=== PATIENT | male | born 1955 | race Caucasian/White ===

== ENCOUNTER 2016-12-28 11:47 | Inpatient (IN) ==
--- NOTE | 2016-12-27 21:23 | Discharge Summary ---
<Padma Avila - Last Filed: 12/28/16 10:00> Date of Encounter: 12/28/16 - Discharge Diagnosis (1) Arthritis of knee, right Priority: Primary Status: Acute (2) Status post total knee replacement, right Priority: Primary Status: Acute (3) History of DVT (deep vein thrombosis) Priority: Secondary Status: Chronic (4) History of paroxysmal atrial tachycardia Priority: Secondary Status: Chronic (5) Obesity Priority: Secondary Status: Chronic Qualifiers: Obesity type: due to excess calories Obesity classification: unspecified obesity classification Serious obesity comorbidity presence: without serious comorbidity Qualified Code(s): E66.09 - Other obesity due to excess calories; Z68.43 - Body mass index (BMI) 50-59.9 , adult; Z68.43 - Body mass index (BMI) 50-59.9 , adult; Z68.43 - Body mass index (BMI) 50-59.9 , adult; Z68.43 - Body mass index (BMI) 50-59.9 , adult (6) HTN (hypertension) Priority: Secondary Status: Chronic Qualifiers: Hypertension type: essential hypertension Qualified Code(s): I10 - Essential (primary) hypertension (7) Tobacco use Priority: Secondary Status: Chronic - Discharge Medications Home Medications: Furosemide [Lasix] 40 mg PO DAILY 08/12/15 [History] Meloxicam 15 mg PO DAILY 08/12/15 [History] Potassium Chloride [Klor-Con] 10 meq PO DAILY 08/12/15 [History] Aspirin Enteric Coated [Aspirin EC] 325 mg PO DAILY #21 tablet. 12/27/16 [Rx] OxyCODONE Immed Rel [Roxicodone 5 MG] 5 mg PO Q6HR PRN 7 Days #28 tablet [Rx] Acetaminophen [Tylenol Arthritis] 650 mg PO BID PRN 12/28/16 [History] Albuterol Sulfate [Proair Hfa] 2 puff IH Q4H PRN 12/28/16 [History] Aspirin 81 mg PO DAILY 12/28/16 [History] Diclofenac Sodium 1 appl TP QID PRN 12/28/16 [History] Enoxaparin [Lovenox] 30 mg SQ Q12HR #20 syr 12/28/16 [Rx] Mv-Mn/FA/Vit K/Lycop/Lut/Coq10 [Daily Multivitamin Capsule] 1 tab PO DAILY 12/28 [History] Allergies/Adverse Reactions: 3 Allergy/AdvReac Type Severity Reaction Status Date / Time No Known Allergies Allergy Verified 12/28/16 12:11 Primary care physician: Yvrose Lewis MD - Patient Status Disposition: Transfer Inpatient Rehab Fac Condition: Good - Discharge Instructions Follow Up With: Madi Medley MD [Partnered Physician] - 01/27/17 5:20 pm Padma Avila PAC [Physician Developer [employer]] - 01/07/17 9:45 am (Also, appointment 01/15/17 @ 9:15AM) Yvrose Lewis MD [Primary Care Provider] - 01/14/17 1:30 pm - Hospital Course Hospital course: Mr. Turk is a 61 year old male - Time Spent with Patient Total time spent providing and/or coordinating discharge services: <Madi Medley - Last Filed: 12/30/16 08:47> Date of Encounter: 12/30/16 Time of Encounter: 08:47 - Discharge Diagnosis (1) Arthritis of knee, right Priority: Primary Status: Chronic (2) Status post total knee replacement, right Priority: Primary Status: Acute (3) History of DVT (deep vein thrombosis) Priority: Secondary Status: Chronic (4) History of paroxysmal atrial tachycardia Priority: Secondary Status: Chronic (5) Obesity Priority: Secondary Status: Chronic Qualifiers: Obesity type: due to excess calories Obesity classification: adult class 3 (BMI >= 40) Serious obesity comorbidity presence: without serious comorbidity Body mass index: BMI 50.0-59.9 Qualified Code(s): E66.09 - Other obesity due to excess calories; Z68.43 - Body mass index (BMI) 50-59.9 , adult; Z68.43 - Body mass index (BMI) 50-59.9 , adult; Z68.43 - Body mass index (BMI) 50-59.9 , adult; Z68.43 - Body mass index (BMI) 50-59.9 , adult (6) HTN (hypertension) Priority: Secondary Status: Chronic Qualifiers: Hypertension type: essential hypertension Qualified Code(s): I10 - Essential (primary) hypertension (7) Tobacco use Priority: Secondary Status: Chronic Primary care physician: Yvrose Lewis MD - Patient Status Functional capacity at discharge: uses cane/walker Overall status at discharge: patient is progressing back to baseline - Hospital Course Hospital course: Mr. Turk is a 61 year old male Status post right total knee replacementThe patient had an uneventful postoperative course. They received antibiotics and physical therapy and were discharged in stable condition. There will follow-up in the office in 2 weeks. - Time Spent with Patient Total time spent providing and/or coordinating discharge services:
--- NOTE | 2016-12-28 12:14 | History & Physical Report ---
Date of Encounter: 12/28/16 Time of Encounter: 12:14 24 Hour HP Update - Instructions Instructions: If the History and Physical is less than 30 days old and was completed prior to A.M. admission and or procedure and has NOT been updated on calendar day of procedure please complete this update prior to performing procedure. - Update Patient reports changes in Medical Condition: No Changes in examination, assessment, or condition: No Changes in Medication: No Preop tests/diagnostics Reviewed: Yes Surgery Remains Indicated: Yes Consent for Planned Operative Procedure(s) Verified: Yes - Pre-Operative Checklist Preoperative Checklist Indicated: No Prophylactic Antibiotic Ordered: Yes Is VTE Prophylaxis Indicated?: Yes
[2016-12-28] MEDS ORDERED: Lidocaine -MPF 1% 2 ML VIAL ID ONE (12:17)
[2016-12-28] MEDS ORDERED: CeFAZolin Pre 3,000 MG/100 ML 3,000 MG/100 ML BAG IVPB ONE (12:17)
[2016-12-28] MEDS ORDERED: Ringers Solution, Lactated 1,000 ML IVC SCH ×2 (12:30→17:01)
[2016-12-28] MEDS ORDERED: Plasma-Lyte A (PH 7.4) 1,000 ML IVC SCH (12:45)
[2016-12-28] MEDS ORDERED: Bupivacaine/Clonidine Syringe 1 EACH SYRINGE ONE (13:28)
[2016-12-28] MEDS ORDERED: ROPIVACAINE HCL/PF 0.5% 30 ML VIAL ONE (13:28)
--- NOTE | 2016-12-28 13:30 | Anesthesia Evaluation PreOp ---
Date of Encounter: 12/28/16 Time of Encounter: 13:33 - Past History Planned Operation: Total right knee arthoplasty Cardiac History: HTN, Hyperlipidemia, Arrhythmia (A fib), Other (hx DVT) Pulmonary History: Former smoker CIRCUS TRAIN SUPERVISOR History: Denies Any Significant HX Other Medical History: Other (BMI 50) Anesthesia History: No Prior Anesthetic Complications Alcohol Use: none, rarely Drug use: none Medications and Allergies Furosemide [Lasix] 40 mg PO DAILY 08/12/15 [History] Meloxicam 15 mg PO DAILY 08/12/15 [History] Potassium Chloride [Klor-Con] 10 meq PO DAILY 08/12/15 [History] Aspirin Enteric Coated [Aspirin EC] 325 mg PO DAILY #21 tablet. 12/27/16 [Rx] OxyCODONE Immed Rel [Roxicodone 5 MG] 5 mg PO Q6HR PRN 7 Days #28 tablet [Rx] Acetaminophen [Tylenol Arthritis] 650 mg PO BID PRN 12/28/16 [History] Albuterol Sulfate [Proair Hfa] 2 puff IH Q4H PRN 12/28/16 [History] Aspirin 81 mg PO DAILY 12/28/16 [History] Diclofenac Sodium 1 appl TP QID PRN 12/28/16 [History] Enoxaparin [Lovenox] 30 mg SQ Q12HR #20 syr 12/28/16 [Rx] Mv-Mn/FA/Vit K/Lycop/Lut/Coq10 [Daily Multivitamin Capsule] 1 tab PO DAILY 12/28 [History] 3 Allergy/AdvReac Type Severity Reaction Status Date / Time No Known Allergies Allergy Verified 12/28/16 12:11 - Meds/Allergy Pre-op Review Medications Reviewed: Yes Allergies Reviewed: Yes Beta Blockers on Current Med List: No Anesthesia Results - Labs Laboratory Tests 12/24/16 12/24/16 12/24/16 10:40 10:40 10:40 WBC 10.9 Hgb 16.3 Hct 48.9 Plt Count 245 PT 11.5 INR 1.1 APTT 27.9 Sodium 141 Potassium 3.8 Chloride 103 Carbon Dioxide 26 BUN 18 Creatinine 0.95 Est GFR ( Amer) > 60 Est GFR (Non-Af Amer) > 60 BUN/Creatinine Ratio 19 - Imaging EKG: report reviewed, image reviewed (SINUS RHYTHM BORDERLINE LEFT AXIS DEVIATION) Additional studies: 6-2016 TTE: Indications: Lower extremity edema Impressions: Borderline dilated left ventricle. Normal LV systolic function, LVEF 55-60%. Mild concentric left ventricular hypertrophy. Indeterminate diastolic function. Normal right ventricular structure and function. Moderately dilated left atrium. Unable to estimate RVSP due to lack of TR jet. No significant valvular dysfunction. Anesthesia Exam Last Vital Signs Temp 98.0 F 12/28/16 12:31 Pulse 70 12/28/16 12:31 Resp 18 12/28/16 12:31 BP 114/60 12/28/16 12:31 Pulse Ox 93 12/28/16 12:31 Weight: 163 kg NPO (# of Hours): > 8 hrs - HEENT Pupil (Motor): Pupils equal, EOMI Mallampati: III Teeth: Normal Oral Opening: Greater than 3 - CIRCUS TRAIN SUPERVISOR LOC: Oriented CIRCUS TRAIN SUPERVISOR Motor: Normal RUE, Normal LUE, Normal RLE, Normal LLE, Normal Face - Cardiac Rhythm: Regular Murmur: None - Pulmonary Breath Sounds: bilateral Clear Respiratory Effort: Symmetrical Anesthesia Assess/Plan ASA Score: 3 Modified Ragini Scale for Level of Consciousness: Cooperative, oriented, and tranquil Anesthetic Plan: General, Regional Monitoring Plan: Standard Monitors Recovery Plan: PACU
[2016-12-28] MEDS ORDERED: *HR* FentaNYL (PF) 100 MCG/2 ML VIAL ONE (13:31)
[2016-12-28] MEDS ORDERED: *HR* Midazolam HCl 2 MG/2 ML VIAL ONE (13:31)
[2016-12-28] MEDS ORDERED: *HR* HYDROmorphone (PF) 1 MG/ML SYRINGE IVP PRN ×2 (13:41→17:01)
[2016-12-28] MEDS ORDERED: *HR* Promethazine 25 MG/ML VIAL IVP PRN (13:41)
[2016-12-28] MEDS ORDERED: Ketorolac 30 MG/ML VIAL ONE (13:44)
[2016-12-28] MEDS ORDERED: Lidocaine -MPF 4% 5 ML AMPUL ONE (13:44)
[2016-12-28] MEDS ORDERED: *HR* Succinylcholine 200 MG/10 ML VIAL IVP ONE (13:44)
[2016-12-28] MEDS ORDERED: *HR* Propofol 200 MG/20 ML VIAL IVP ONE (13:44)
[2016-12-28] MEDS ORDERED: Ondansetron 4 MG/2 ML VIAL ONE (13:44)
[2016-12-28] MEDS ORDERED: Dexamethasone 4 MG/ML VIAL ONE (13:44)
[2016-12-28] MEDS ORDERED: Lidocaine -MPF 2% 2 ML VIAL ONE (13:44)
[2016-12-28] MEDS ORDERED: Ethanol\\Acetic Acid\\Na Ace\\Ben 1,000 ML IRRIG.SOLN IR ONE (14:40)
--- NOTE | 2016-12-28 14:52 | Anesthesia Procedures ---
Date of Encounter: 12/28/16 Time of Encounter: 14:30 Procedures: Anesthesia - Nerve Block Procedure Date: 12/28/16 Time: 14:30 Allergies/Adv Reactions: nkda Pre-op Diagnosis: R knee pain Surgical Procedure: R total knee Checklist: Correct Patient Identifier, Correct procedure, History checked Correct side: Right Blood Thinner: No Monitor Applied: EKG, BP, Pulse Oximetry Supplemental Oxygen via Nasal Cannula (L/min): 2 Sedation: Versed (mg): 2 Sedation: Fentanyl (mcg): 100 Indication: Post Op Analgesia Pre-op Neuro Deficits: No Block Type: Femoral, Other (IPAC) Catheter placed: No Ultrasound used: Yes Anatomy identified: Yes Visual spread of Local: Yes Neuro Stimulation: Yes Nerve Stimulator Range: 0.2 - 0.4 mA Blood on Needle Aspiration: No Smooth Injection of Local: Yes Pain with Injection of Local: No Prep: Chlorhexadine Local: Ropivacaine Volume (cc): 30 Number of Attempts: 1 Complications: None/effective block
--- NOTE | 2016-12-28 15:45 | Orthopedic Operative Note ---
Date of procedure: 12/28/16 Pre-op diagnosis: Right knee arthritis Post-op diagnosis: same Procedure: Procedure: Right Total knee replacement Estimated blood loss: 400 cc Hardware: Metal and polyethylene replacement. Arthrex Femur: 9 Tibia: 9 PS insert: 12 Patella: 40 Exam Under anesthesia: Full flexion and extension no instability Procedural Notes: Grade 4 arthritic changes all 3 compartments. Operative procedure: The patient was brought to the operating room and placed on the operating room table. After general anesthesia was administered the operative knee was examined. Findings were noted in the exam under anesthesia. The operative extremity was prepped and draped in sterile surgical fashion. The patient received IV antibiotics prior to skin incision. A standard midline incision was made centered over the patella. The incision was made through the skin and subcutaneous tissue. A medial parapatellar tendon approach was performed. Care was taken to preserve tissue along the medial aspect of the patella. And to protect the patella tendon. The deep MCL was released off the medial tibia. The infra patella fat pad was excised. Knee was brought into flexion. Patient noted to have grade 4 arthritic changes all 3 compartments. The entry hole was made for the intramedullary femoral guide. The guide was seated in 6 degrees of valgus. Anterior cut was made followed by the distal cut. The ACL the PCL the medial and the lateral menisci were excised. The tibia was subluxed forward. The entry hole was made for the intramedullary tibial guide. Guide was seated to resect 2 mm off the more abnormal side. The knee was brought into flexion the distal femur was sized to a 9. The femoral guide was seated, the anterior cut was made followed by the posterior condylar cut, followed by the chamfer cuts. The finishing guide was seated the box cut was made and the lug holes were drilled. The tibia was sized to a 9, the tibial tray was seated and prepared with the large drill followed by the fin cutter. Trial reduction revealed full extension no varus valgus instability with the appropriate 12 PS Mayra. The patella was everted and cut was made at the level of the insertion of the quadriceps and patella tendon. The patella was sized to a 40 the guide was seated and the lug holes are drilled. Trial reduction revealed excellent patella tracking. All trial components were removed all bony surfaces were irrigated. The tibia was cemented first followed by the femur. The 12 PS Mayra was seated and the knee was brought into full extension. The patella was cemented and held in place with the patellar holding clamp. After the cement had hardened, the knee sat for 2 minutes with a Betadine saline solution. The knee was then irrigated out with 2 L of pulse irrigation. The PA close the knee. The extensor mechanism was closed with #2 FiberWire suture and #2 PDS suture. The subcutaneous tissue was then irrigated and closed deep with #1 PDS suture superficially with 0 PDS suture and skin was closed with skin jose. The patient was then placed in a sterile dressing and a postoperative brace extubated and transferred to recovery room in stable condition. Anesthesia: TYLOR Surgeon: Madi Medley Child Attendant: Alexandra Baeza Condition: stable Disposition: PACU
[2016-12-28] MEDS ORDERED: *HR* HYDROmorphone 2 MG/ML SYRINGE ONE (16:08)
[2016-12-28 16:48] LABS: Hematocrit 43.4 % (37.5-50.1)
[2016-12-28 16:50] LABS: Hemoglobin 14.2 g/dL (12.9-16.9)
--- NOTE | 2016-12-28 16:52 | Anesthesia Evaluation Post Op ---
Date of Encounter: 12/28/16 Time of Encounter: 16:53 - Vital Signs Vital Signs: Vital Signs - Last 8 Hours Temp Pulse Resp BP Pulse Ox 12/28/16 16:46 77 16 124/59 96 12/28/16 16:36 75 16 126/57 93 12/28/16 16:26 97.9 F 74 16 119/50 98 12/28/16 14:44 65 16 125/65 96 12/28/16 14:15 61 15 126/59 96 12/28/16 12:31 98.0 F 70 18 114/60 93 12/28/16 12:13 98.0 F 70 18 114/60 93 Intake and Output 12/28/16 12/28/16 12/28/16 07:59 15:59 23:59 Output Total 400 / 400 Balance -400 / -400 Output: Urine 0 / 0 Estimated Blood Loss 400 / 400 Other: Weight 163.293 kg Patient Weight 12/28/16 23:59 Weight 163.293 kg - Lungs Lungs: Clear Ascult./Percussion - Airway Airway: Non-obstructed - Cardiovascular Regular Rate, Baseline Rhythm - Mental Status Mental Status: Alert & Oriented, Answers Appropriately - Pain Pain Scale: 0 Pain Scale used: Numeric (1 - 10) - Nausea Vomiting Nausea Vomiting: Not Present - Hydration Hydration: Tolerates oral liquids Notes: 12/28/16 16:52 PATIENT DENIES PAIN OR NAUSEA - Discharge PostOp Status: Transfer Patient to floor ([id number])
[2016-12-28] MEDS ORDERED: Ondansetron 4 MG/2 ML VIAL IVP PRN (17:01)
[2016-12-28] MEDS ORDERED: Sennosides 8.6 MG TABLET PO PRN (17:01)
[2016-12-28] MEDS ORDERED: *HR* OxyCODONE Immed Rel 5 MG TABLET PO PRN (17:01)
[2016-12-28] MEDS ORDERED: Temazepam 15 MG CAPSULE PO PRN (17:01)
[2016-12-28] MEDS ORDERED: MOM Conc 10 ML UD.LIQ PO PRN (17:01)
[2016-12-28] MEDS ORDERED: Naloxone 0.4 MG/ML INJ IVP PRN (17:01)
[2016-12-28] MEDS ORDERED: ceFAZolin 3,000 MG in D5% in Water 100 ML IVPB SCH (17:01)
[2016-12-28] MEDS: *HR* Enoxaparin 30 MG/0.3 ML SYRINGE SQ SCH (17:39)
[2016-12-28] MEDS ORDERED: *HR* Enoxaparin 30 MG/0.3 ML SYRINGE SQ SCH (18:00)
[2016-12-28] MEDS: ceFAZolin 3,000 MG in D5% in Water 100 ML IVPB SCH (23:38)
[2016-12-29] MEDS: *HR* Enoxaparin 30 MG/0.3 ML SYRINGE SQ SCH ×2 (05:36→17:28)
[2016-12-29] MEDS: ceFAZolin 3,000 MG in D5% in Water 100 ML IVPB SCH (05:36)
[2016-12-29] MEDS: *HR* OxyCODONE Immed Rel 5 MG TABLET PO PRN ×2 (05:51→12:22)
--- NOTE | 2016-12-29 06:42 | Orthopedics Progress Note ---
Date of Encounter: 12/29/16 Time of Encounter: 06:41 - Assessment and Plan (1) Arthritis of knee, right Current Visit: No Status: Chronic (2) Status post total knee replacement, right Current Visit: No Status: Acute (3) History of DVT (deep vein thrombosis) Current Visit: No Status: Chronic (4) History of paroxysmal atrial tachycardia Current Visit: No Status: Chronic (5) Obesity Current Visit: No Status: Chronic Qualifiers: Obesity type: due to excess calories Obesity classification: adult class 3 (BMI >= 40) Serious obesity comorbidity presence: without serious comorbidity Body mass index: BMI 50.0-59.9 Qualified Code(s): E66.09 - Other obesity due to excess calories; Z68.43 - Body mass index (BMI) 50-59.9 , adult; Z68.43 - Body mass index (BMI) 50-59.9 , adult; Z68.43 - Body mass index (BMI) 50-59.9 , adult; Z68.43 - Body mass index (BMI) 50-59.9 , adult (6) HTN (hypertension) Current Visit: No Status: Chronic Qualifiers: Hypertension type: essential hypertension Qualified Code(s): I10 - Essential (primary) hypertension (7) Tobacco use Current Visit: No Status: Chronic Subjective Interval history: Patient was seen this morning doing well without complaints. Afebrile vital signs stable. Operative extremity: Neurovascularly intact Dressing clean dry and intact Calves nontender Assessment and plan: Continue with postoperative care Hematocrit 43, possible discharge today Objective Vital signs: Vital Signs Temp Pulse Resp BP Pulse Ox 12/29/16 04:31 98.6 F 78 16 117/71 94 12/29/16 00:44 98.6 F 80 16 105/69 97 12/28/16 20:00 98.3 F 84 16 135/77 96 12/28/16 18:00 98.1 F 80 14 140/79 100 12/28/16 17:35 98.0 F 79 15 134/79 99 12/28/16 17:29 98.5 F 83 18 115/55 93 12/28/16 16:56 97.9 F 77 16 121/53 100 12/28/16 16:46 77 16 124/59 96 12/28/16 16:36 75 16 126/57 93 12/28/16 16:26 97.9 F 74 16 119/50 98 12/28/16 14:44 65 16 125/65 96 12/28/16 14:15 61 15 126/59 96 12/28/16 12:31 98.0 F 70 18 114/60 93 12/28/16 12:13 98.0 F 70 18 114/60 93 Intake and Output 12/28/16 12/28/16 12/29/16 15:59 23:59 07:59 Intake Total 100 / 100 Output Total 400 / 400 500 / 500 Balance -400 / -400 -400 / -400 Intake: IV Fluids 100 / 100 Ancef 3,000 MG In Dextrose 5% 100 / 100 100 ML @ 200 mls/hr IVPB Q8H [facility] Rx#:[id number] Output: Urine 0 / 0 500 / 500 Estimated Blood Loss 400 / 400 Other: Weight 163.293 kg - Labs CBC & BMP: 12/28/16 16:34 - VTE Documentation of Mechanical Device: Intermittent pneumatic compression device Consult Discharge Plan - Plan Referrals: Madi Medley MD [Partnered Physician] - 01/27/17 5:20 pm Padma Avila PAC [Physician Asthma Educator] - 01/07/17 9:45 am (Also, appointment 01/15/17 @ 9:15AM) Yvrose eLwis MD [Primary Care Provider] - 01/14/17 1:30 pm
[2016-12-29 07:02] LABS: Hematocrit 38.2 % (37.5-50.1); Hemoglobin 12.8 g/dL (12.9-16.9)
[2016-12-29 07:19] LABS: BUN/Creatinine Ratio 20 (6-26); Blood Urea Nitrogen 19 mg/dL (8-26); Calcium 8.8 mg/dL (8.6-10.8); Carbon Dioxide 24 mEq/L (19-29); Chloride 104 mEq/L (98-109); Glucose 173 mg/dL (70-99); Osmolality,Calculated 292 (280-300); Potassium 4.7 mEq/L (3.5-4.5); Sodium 138 mEq/L (136-145); eGFR For African Americans > 60 (> 60); eGFR For Non-African Americans > 60 (> 60)
[2016-12-29] MEDS: Multivit/Ca/Min/Fe/FA 1 TAB TABLET PO SCH (09:42)
[2016-12-29] MEDS: Aspirin 81 MG TAB.CHEW PO SCH (09:42)
[2016-12-29] MEDS: Furosemide 40 MG TABLET PO SCH (09:42)
[2016-12-30] MEDS: *HR* OxyCODONE Immed Rel 5 MG TABLET PO PRN ×3 (01:40→10:51)
[2016-12-30] MEDS: *HR* Enoxaparin 30 MG/0.3 ML SYRINGE SQ SCH ×2 (05:33→16:35)
[2016-12-30 07:27] LABS: Hematocrit 34.4 % (37.5-50.1); Hemoglobin 11.6 g/dL (12.9-16.9)
[2016-12-30 07:50] LABS: BUN/Creatinine Ratio 21 (6-26); Blood Urea Nitrogen 15 mg/dL (8-26); Calcium 8.7 mg/dL (8.6-10.8); Carbon Dioxide 30 mEq/L (19-29); Chloride 102 mEq/L (98-109); Glucose 110 mg/dL (70-99); Osmolality,Calculated 285 (280-300); Sodium 137 mEq/L (136-145); eGFR For African Americans > 60 (> 60); eGFR For Non-African Americans > 60 (> 60)
[2016-12-30] MEDS: Multivit/Ca/Min/Fe/FA 1 TAB TABLET PO SCH (08:37)
[2016-12-30] MEDS: Aspirin 81 MG TAB.CHEW PO SCH (08:37)
[2016-12-30] MEDS: Furosemide 40 MG TABLET PO SCH (08:38)
--- NOTE | 2016-12-30 08:48 | Orthopedics Progress Note ---
Date of Encounter: 12/30/16 Time of Encounter: 08:48 - Assessment and Plan (1) Arthritis of knee, right Current Visit: No Status: Chronic (2) Status post total knee replacement, right Current Visit: No Status: Acute (3) History of DVT (deep vein thrombosis) Current Visit: No Status: Chronic (4) History of paroxysmal atrial tachycardia Current Visit: No Status: Chronic (5) Obesity Current Visit: No Status: Chronic Qualifiers: Obesity type: due to excess calories Obesity classification: adult class 3 (BMI >= 40) Serious obesity comorbidity presence: without serious comorbidity Body mass index: BMI 50.0-59.9 Qualified Code(s): E66.09 - Other obesity due to excess calories; Z68.43 - Body mass index (BMI) 50-59.9 , adult; Z68.43 - Body mass index (BMI) 50-59.9 , adult; Z68.43 - Body mass index (BMI) 50-59.9 , adult; Z68.43 - Body mass index (BMI) 50-59.9 , adult (6) HTN (hypertension) Current Visit: No Status: Chronic Qualifiers: Hypertension type: essential hypertension Qualified Code(s): I10 - Essential (primary) hypertension (7) Tobacco use Current Visit: No Status: Chronic Subjective Interval history: Patient was seen this morning doing well without complaints. Afebrile vital signs stable. Operative extremity: Neurovascularly intact Dressing clean dry and intact Calves nontender Assessment and plan: Continue with postoperative care Hematocrit 34, possible discharge today Objective Vital signs: Vital Signs Temp Pulse Resp BP Pulse Ox 12/30/16 06:51 98.7 F 73 16 148/73 95 12/30/16 03:20 98.5 F 67 19 146/78 94 12/29/16 23:47 98.0 F 76 19 136/75 93 12/29/16 18:46 98.3 F 82 19 115/64 93 12/29/16 15:02 97.4 F L 80 20 124/70 93 12/29/16 11:15 98.0 F 76 20 110/72 93 Intake and Output 12/29/16 12/30/16 12/30/16 23:59 07:59 15:59 Intake Total 100 / 100 300 / 300 Output Total 1550 / 1550 Balance 100 / 100 -1250 / -1250 Intake: Oral 100 / 100 300 / 300 Output: Urine 1550 / 1550 - Labs CBC & BMP: 12/30/16 07:00 12/30/16 07:00 Labs: Abnormal lab results Hgb 11.6 g/dL (12.9-16.9) L 12/30/16 07:00 Hct 34.4 % (37.5-50.1) L 12/30/16 07:00 Carbon Dioxide 30 mEq/L (19-29) H 12/30/16 07:00 Glucose 110 mg/dL (70-99) H 12/30/16 07:00 - VTE Documentation of Mechanical Device: Intermittent pneumatic compression device Consult Discharge Plan - Plan Referrals: Madi Medley MD [Partnered Physician] - 01/27/17 5:20 pm Padma Avila, PAC [Physician First Assistant] - 01/07/17 9:45 am (Also, appointment 01/15/17 @ 9:15AM) Yvrose Lewis MD [Primary Care Provider] - 01/14/17 1:30 pm
--- NOTE | 2016-12-30 11:35 | Physician Discharge Referral ---
ExtendedCare Referral Info Transfer To: F Provider in Charge: Provider in Charge after Transfer: PCP Institutional Level of Care: Skilled - Diagnosis (1) Arthritis of knee, right Priority: Primary Status: Chronic (2) Status post total knee replacement, right Priority: Primary Status: Acute (3) History of DVT (deep vein thrombosis) Priority: Secondary Status: Chronic (4) History of paroxysmal atrial tachycardia Priority: Secondary Status: Chronic (5) Obesity Priority: Secondary Status: Chronic (6) HTN (hypertension) Priority: Secondary Status: Chronic (7) Tobacco use Priority: Secondary Status: Chronic Expected Duration of Placement: < 30 days Prognosis: Good Aware of Diagnosis: Patient Aware of Prognosis: Patient - Transfer Medications Prescriptions: Enoxaparin [Lovenox] 30 mg SQ Q12HR #20 syr Home Medications: Furosemide [Lasix] 40 mg PO DAILY 08/12/15 [History] Meloxicam 15 mg PO DAILY 08/12/15 [History] Potassium Chloride [Klor-Con] 10 meq PO DAILY 08/12/15 [History] OxyCODONE Immed Rel [Roxicodone 5 MG] 5 mg PO Q6HR PRN 7 Days #28 tablet [Rx] Acetaminophen [Tylenol Arthritis] 650 mg PO BID PRN 12/28/16 [History] Albuterol Sulfate [Proair Hfa] 2 puff IH Q4H PRN 12/28/16 [History] Aspirin 81 mg PO DAILY 12/28/16 [History] Diclofenac Sodium 1 appl TP QID PRN 12/28/16 [History] Enoxaparin [Lovenox] 30 mg SQ Q12HR #20 syr 12/28/16 [Rx] Mv-Mn/FA/Vit K/Lycop/Lut/Coq10 [Daily Multivitamin Capsule] 1 tab PO DAILY 12/28 [History] Enoxaparin [Lovenox] 30 mg SQ Q12HR #20 syr 12/30/16 [Rx] Allergies/Adverse Reactions: 3 Allergy/AdvReac Type Severity Reaction Status Date / Time No Known Allergies Allergy Verified 12/28/16 12:11 - Respiratory Orders None Smoking Cessation: Smoking cessation has been advised. For more information, call the [place] Tobacco Quit Line at 3-186-YCMF-NOW. - Ancillary Orders May use pressure relief devices daily prn, May go on MARIS w/family/respon republican w /meds at nurse discretion PRN, May consult with Dentist, Technician Preventative Medicine, Chemistry Professor PRN - Mobility Orders Chair, Ambulate - Rehabiliation Orders Rehab Potential: Good Rehab Orders: ROM Exercises, Evaluation for Physical Therapy, Evaluation for Occupational Therapy - Treatments Skin tear care topically daily PRN per policy List/Other: Opsite dressing, leave intact until first post-operative visit. If dressing becomes >50% saturated, contact office, remove dressing and place appropriate dressing in its place. Do not allow for dressing to get wet. Centuria in place, plan to remove at post-operative day #14-16. Total Joint Precautions x 6 weeks Apply cold therapy wrap 3-6x/day for 20 minutes at a time. Encourage ambulation throughout the day Use Incentive spirometer 10x/hour. Elevate affected extremity above heart as tolerated. Brace: Wear knee immobilizer at night x 2 weeks. - Diet Orders Regular CERTIFICATION: I certify that the transfer of the above named patient to an Extended Care Facility is necessary for the continuing treatment of the diagnosis listed. The above information is true and accurate reflection of patient's current condition. Confidential - Redisclosure prohibited without a patient's written consent.
[2016-12-30] MEDS ORDERED: FLUARIX QUAD 2017-18 36MOS UP/PF 0.5 ML SYRINGE IM ONE (16:27)
[2016-12-30 18:58] VITALS: BP 155/74
== END 2016-12-30 19:05 | DRG 470 ==
LOC: SAMDAY 11:47 → 3NENU 17:28
PROVIDERS: ADMIT Orthopaedic Surgery; ATTEND Orthopaedic Surgery

== ENCOUNTER 2017-09-04 02:04 | Observation (INO) ==
--- NOTE | 2017-09-04 06:38 | Internal Med History&Physical ---
Date of Encounter: 09/04/17 Time of Encounter: 06:35 Internal Medicine - H&P: HPI Admitted From: Emergency Dept Plans for Post Hospital Care: Home History of present illness: Mr. Turk is a 62 year old male with hx morbid obesity. Pt presents with right knee pain that started a week ago from . He denies trauma tjo the knee. States he and his son where moving furniture but he denies hurting his knee. His knee was replaced was replaced Dec 2016. He denies fever or chills but states his pain was so intense that he felt nauseous but did not vomit. Orthopedic physician aware t is being admitted Past Med Surg Social Fam HX - Past Medical History Medical history: arthritis, DVT Additional medical history: cardiac cath,hx perianal abcess,hx a fib,vertigo, bilateral knee pain,imm RLL pulm nodule,bronchial tic Psychiatric history: no psych history - Past Surgical History Surgical History: appendectomy, cholecystectomy, knee replacement Additional surgical history: colonoscopy,hernia repair,tonsillectomy and adenoidectomy,MVAS skull reconstruction,incision and drainage of perianal abcess ,cardiac cath,troy procedure/sigmoidectomy,,recurrent diverticulitis, colostomy,right total knee replacement,right knee scope - Social History Smoking Status: Never smoker Smokeless Tobacco Status: Yes Alcohol use: none, rarely Drug use: none - Family History Mother Living Status: Hx Family Cardiac Disorders: Yes (valve replacement, scarring) Internal Medicine - H&P: Meds Furosemide [Lasix] 40 mg PO DAILY 08/12/15 [History] Potassium Chloride [Klor-Con] 10 meq PO DAILY 08/12/15 [History] Acetaminophen [Tylenol Arthritis] 650 mg PO BID PRN 12/28/16 [History] Albuterol Sulfate [Proair Hfa] 2 puff IH Q4H PRN 12/28/16 [History] Aspirin 81 mg PO DAILY 12/28/16 [History] Diclofenac Sodium 1 appl TP QID PRN 12/28/16 [History] Mv-Mn/FA/Vit K/Lycop/Lut/Coq10 [Daily Multivitamin Capsule] 1 tab PO DAILY 12/28 [History] Clindamycin [Cleocin] 150 mg PO Q6HR #7 capsule 07/01/17 [Rx] HYDROcodone/Acet 5/325 mg [[place] 5-325 mg] 1 tab PO Q6H PRN 5 Days #14 tab 07/01 [Rx] Ibuprofen [Motrin] 600 mg PO Q8HR #20 tab 07/01/17 [Rx] 3 Allergy/AdvReac Type Severity Reaction Status Date / Time No Known Allergies Allergy Verified 06/15/17 11:30 All Systems PM: A 10-system review of systems was performed and is negative for pertinent findings except as documented above in the HPI. - Constitutional Vitals: Temp Pulse Resp BP Pulse Ox 97.6 F 67 16 151/82 96 09/04/17 04:16 09/04/17 04:16 09/04/17 04:16 09/04/17 04:16 09/04/17 04:22 General appearance: Present: A&O X 3, no acute distress - Head Head exam: Present: atraumatic, normocephalic - Eye Eye exam: Present: PERRL, conjuntiva pink, sclera anicteric Pupils: Present: PERRL - Neck Neck exam general surgery: Present: supple, trachea midline. Absent: lymphadenopathy - Respiratory Respiratory exam: Present: CTAB. Absent: accessory muscle use, rales, rhonchi, wheezes - Cardiovascular Cardiovascular exam: Present: RRR, +S1, +S2. Absent: diastolic murmur, gallop, rubs, systolic murmur - GI/Abdominal GI/Abdominal exam: Present: normal bowel sounds, soft, no peritoneal signs. Absent: distended, tenderness - Extremities Exam Extremities exam: Present: warm, radial pulses palpable and symmetrical. Absent : calf tenderness, cyanotic, pedal edema - Neurological Exam Neurological exam: Present: CN II-XII intact, oriented X3, no focal deficits. Absent: pronater drift, facial droop, speech deficit - Skin Skin exam: Present: dry, intact - Assessment and plan (1) Septic joint Current Visit: Yes Status: Acute Assessment and plan: COnsulting ortho. Will obtain blood sulture WIll hold off on antibiotic for now till pt evaluated by ortho group. NPO for now. Qualifiers: Qualified Code(s): M00.9 - Pyogenic arthritis, unspecified (2) Arthritis of knee, right Current Visit: No Status: Chronic Assessment and plan: s/p right knee surgery - Time Spent With Patient Total time spent is greater than 50% in coordination of care (as documented) at patient's floor/unit and/or counseling patient: 25 - 35 minutes
--- NOTE | 2017-09-04 07:00 | Orthopedic Consult Note ---
Date of Encounter: 09/04/17 Time of Encounter: 06:58 History of Present Illness HPI: Mr. Turk is a 62 year old male Well-known to me seen in my office on Wednesday for increased right knee pain. Patient has chronic venous stasis with question of cellulitis of both lower extremities. With regards to knee swelling or erythema. X-rays at that time unremarkable. Physical exam Right knee Well-healed incision No erythema Positive swelling Venous stasis with potential cellulitis unchanged Neurovascular intact Right knee aspirated today under sterile conditions consistent with blood. Sent for Gram stain culture and sensitivity. Patient reports no trauma, patient is morbidly obese which can be a source of some of his issues. At this point time we will await the results from the aspiration recommend conservative management with the plan for discharge and follow-up as outpatient. Past Med Surg Social Fam HX - Past Medical History Medical history: arthritis, DVT Additional medical history: cardiac cath,hx perianal abcess,hx a fib,vertigo, bilateral knee pain,imm RLL pulm nodule,bronchial tic Psychiatric history: no psych history - Past Surgical History Surgical History: appendectomy, cholecystectomy, knee replacement Additional surgical history: colonoscopy,hernia repair,tonsillectomy and adenoidectomy,MVAS skull reconstruction,incision and drainage of perianal abcess ,cardiac cath,troy procedure/sigmoidectomy,,recurrent diverticulitis, colostomy,right total knee replacement,right knee scope - Social History Smoking Status: Never smoker Smokeless Tobacco Status: Yes Alcohol use: none, rarely Drug use: none - Family History Mother Living Status: Hx Family Cardiac Disorders: Yes (valve replacement, scarring) Medications and Allergies Furosemide [Lasix] 40 mg PO DAILY 08/12/15 [History] Potassium Chloride [Klor-Con] 10 meq PO DAILY 08/12/15 [History] Acetaminophen [Tylenol Arthritis] 650 mg PO BID PRN 12/28/16 [History] Albuterol Sulfate [Proair Hfa] 2 puff IH Q4H PRN 12/28/16 [History] Aspirin 81 mg PO DAILY 12/28/16 [History] Diclofenac Sodium 1 appl TP QID PRN 12/28/16 [History] Mv-Mn/FA/Vit K/Lycop/Lut/Coq10 [Daily Multivitamin Capsule] 1 tab PO DAILY 12/28 [History] Clindamycin [Cleocin] 150 mg PO Q6HR #7 capsule 07/01/17 [Rx] HYDROcodone/Acet 5/325 mg [[place] 5-325 mg] 1 tab PO Q6H PRN 5 Days #14 tab 07/01 [Rx] Ibuprofen [Motrin] 600 mg PO Q8HR #20 tab 07/01/17 [Rx] 3 Allergy/AdvReac Type Severity Reaction Status Date / Time No Known Allergies Allergy Verified 06/15/17 11:30 All Systems Reviewed: The remainder of the systems were reviewed and are negative Physical Exam - Constitutional Vitals: Temp Pulse Resp BP Pulse Ox 97.6 F 67 16 151/82 96 09/04/17 04:16 09/04/17 04:16 09/04/17 04:16 09/04/17 04:16 09/04/17 04:22 Results - Labs Labs: All other labs normal. Consult Discharge Plan - Plan Referrals: Yvrose Lewis MD [Primary Care Provider] -
[2017-09-04] MEDS ORDERED: *HR* OxyCODONE Immed Rel 5 MG TABLET PO PRN (07:49)
[2017-09-04] MEDS ORDERED: Naloxone 0.4 MG/ML INJ IVP PRN (07:49)
[2017-09-04 08:29] LABS: Basophils # 0.1 K/mcL (0.0-0.2); Basophils % 0.6 %; Eosinophils # 0.4 K/mcL (0.0-0.6); Hematocrit 41.3 % (37.5-50.1); Hemoglobin 13.8 g/dL (12.9-16.9); Immature Granulocytes % 0.4 % (0-4); Lymphocytes # 2.5 K/mcL (0.6-4.6); Lymphocytes % 17.8 %; Mean Corpuscular HGB Conc 33.4 g/dL (31.6-35.5); Mean Corpuscular Hemoglobin 28.8 pg (28.0-33.3); Mean Corpuscular Volume 86.2 fL (83.0-100.0); Mean Platelet Volume 9.6 fL (9.4-12.4); Monocytes # 1.2 K/mcL (0.0-1.3); Monocytes % 8.3 %; Neutrophils # 9.8 K/mcL (1.6-8.9); Platelet Count 279 K/mcL (140-400); Red Blood Count 4.79 M/mcL (4.19-5.50); Red Cell Distribution Width 13.2 % (11.5-14.5); Segmented Neutrophils % 69.9 %
[2017-09-04 08:49] LABS: BUN/Creatinine Ratio 21 (6-26); Blood Urea Nitrogen 16 mg/dL (8-23); Calcium 9.1 mg/dL (8.6-10.3); Carbon Dioxide 26 mEq/L (23-29); Chloride 104 mEq/L (98-107); Glucose 103 mg/dL (70-105); Osmolality,Calculated 289 (280-300); Sodium 139 mEq/L (136-145); eGFR For African Americans > 60 (> 60); eGFR For Non-African Americans > 60 (> 60)
--- NOTE | 2017-09-04 14:18 | Event Note ---
Date of Encounter: 09/04/17 Time of Encounter: 11:30 Patient underwent arthrocentesis today. Synovial fluid has been sent for culture. We will await results. Orthopedics following. Control pain with oral narcotic medications.
[2017-09-05 02:19] LABS: Basophils # 0.1 K/mcL (0.0-0.2); Basophils % 0.8 %; Eosinophils # 0.5 K/mcL (0.0-0.6); Hematocrit 40.1 % (37.5-50.1); Hemoglobin 13.3 g/dL (12.9-16.9); Immature Granulocytes % 0.3 % (0-4); Lymphocytes # 2.4 K/mcL (0.6-4.6); Lymphocytes % 20.1 %; Mean Corpuscular HGB Conc 33.2 g/dL (31.6-35.5); Mean Corpuscular Hemoglobin 28.2 pg (28.0-33.3); Mean Platelet Volume 9.9 fL (9.4-12.4); Monocytes # 0.8 K/mcL (0.0-1.3); Platelet Count 277 K/mcL (140-400); Red Blood Count 4.72 M/mcL (4.19-5.50); Red Cell Distribution Width 13.3 % (11.5-14.5); Segmented Neutrophils % 67.8 %
[2017-09-05 02:33] LABS: BUN/Creatinine Ratio 16 (6-26); Blood Urea Nitrogen 12 mg/dL (8-23); Calcium 9.3 mg/dL (8.6-10.3); Carbon Dioxide 30 mEq/L (23-29); Chloride 105 mEq/L (98-107); Glucose 102 mg/dL (70-105); Osmolality,Calculated 290 (280-300); Potassium 3.9 mEq/L (3.5-5.1); Sodium 140 mEq/L (136-145); eGFR For African Americans > 60 (> 60); eGFR For Non-African Americans > 60 (> 60)
--- NOTE | 2017-09-05 07:55 | Orthopedics Progress Note ---
Date of Encounter: 09/05/17 Time of Encounter: 07:55 Subjective Interval history: Patient seen this morning resting comfortably Right knee Swelling slightly improved No erythema Well-healed incision Cultures negative for growth today Gram stain no bacteria Recommend continue to mobilize patient plan for discharge and workup as outpatient. Objective Vital signs: Vital Signs Temp Pulse Resp BP Pulse Ox 09/05/17 01:14 98.2 F 78 16 111/72 94 09/04/17 21:18 98.2 F 71 16 149/83 96 09/04/17 16:49 98.1 F 64 16 131/69 97 09/04/17 12:05 97.7 F 67 18 144/81 95 09/04/17 08:21 95 Intake and Output 09/04/17 09/04/17 09/05/17 15:59 23:59 07:59 Intake Total 240 / 240 400 / 400 Output Total 950 / 950 Balance 240 / 240 400 / 400 -950 / -950 Intake: Oral 240 / 240 400 / 400 Output: Urine 950 / 950 Other: Meal Breakfast Dinner Percent of Meal Consumed 60% 100% # Voids 1 1 Weight 162.1 kg Patient Weight 09/05/17 23:59 Weight 162.1 kg - Labs CBC & BMP: 09/05/17 01:38 09/05/17 01:38 Labs: Abnormal lab results WBC 11.8 K/mcL (4.3-11.1) H 09/05/17 01:38 Carbon Dioxide 30 mEq/L (23-29) H 09/05/17 01:38 Consult Discharge Plan - Plan Referrals: Yvrose Lewis MD [Primary Care Provider] -
[2017-09-05] MEDS: Aspirin 81 MG TAB.CHEW PO SCH (08:22)
[2017-09-05] MEDS: Multivit/Ca/Min/Fe/FA 1 TAB TABLET PO SCH (08:22)
[2017-09-05] MEDS ORDERED: Furosemide 40 MG TABLET PO SCH (09:00)
[2017-09-05] MEDS: Furosemide 40 MG/4 ML VIAL IVP SCH ×2 (11:54→20:28)
--- NOTE | 2017-09-05 15:28 | Internal Med Progress Note ---
Date of Encounter: 09/05/17 Time of Encounter: 08:40 - Assessment and plan (1) Arthritis of knee, right Current Visit: Yes Status: Chronic Assessment and plan: Patient complaining of increased swelling today. Synovial fluid analysis does not suggest septic arthritis. Likely due to osteoarthritis. Orthopedics recommended outpatient follow-up. (2) Septic joint Current Visit: Yes Status: Ruled-out Assessment and plan: Synovial fluid cultures did not suggest septic joint. No indication for antibiotics. Qualifiers: Septic arthritis location: knee Septic arthritis organism: due to unspecified organism Laterality: right Qualified Code(s): M00.9 - Pyogenic arthritis, unspecified (3) Venous insufficiency of both lower extremities Current Visit: Yes Status: Acute Assessment and plan: Patient is having bilateral lower extremity edema left greater than right. We will place him on intravenous Lasix. (4) HTN (hypertension) Current Visit: Yes Status: Chronic Assessment and plan: Blood pressure is well controlled. Qualifiers: Hypertension type: essential hypertension Qualified Code(s): I10 - Essential (primary) hypertension - Time Spent With Patient Total time spent is greater than 50% in coordination of care (as documented) at patient's floor/unit and/or counseling patient: - Subjective Interval history: Patient is lying in bed. Continues to have pain in right knee. Increased swelling today. Patient reports his been dealing with this for 8 months now and is concerned that nothing is being done. Does have chronic lower extremity swelling which is worse in the left leg than the right. - Constitutional Vitals: Temp Pulse Resp BP Pulse Ox 98.2 F 75 20 105/58 93 09/05/17 15:15 09/05/17 15:15 09/05/17 15:15 09/05/17 15:15 09/05/17 15:15 General appearance: Present: A&O X 3, no acute distress, answers questions appropriately - Neck Neck exam general surgery: Present: supple, trachea midline. Absent: lymphadenopathy - Respiratory Respiratory exam: Present: CTAB. Absent: accessory muscle use, rales, rhonchi, wheezes - Cardiovascular Cardiovascular exam: Present: RRR, +S1, +S2. Absent: diastolic murmur, gallop, rubs, systolic murmur - GI/Abdominal GI/Abdominal exam: Present: normal bowel sounds, soft, no peritoneal signs. Absent: distended, tenderness - Extremities Exam Extremities exam: Present: pedal edema (Left greater than right.), warm, radial pulses palpable and symmetrical. Absent: calf tenderness, cyanotic Additional comments: The right knee is swollen. Mildly tender. No erythema. - Neurological Exam Neurological exam: Present: alert, oriented X3, no focal deficits. Absent: facial droop, speech deficit - Skin Skin exam: Present: dry, intact Internal Medicine: Result - Labs CBC & Chem 7: 09/05/17 01:38 09/05/17 01:38 Labs: Short CBC 09/05/17 Range/Units 01:38 WBC 11.8 H (4.3-11.1) K/mcL Hgb 13.3 (12.9-16.9) g/dL Hct 40.1 (37.5-50.1) % Plt Count 277 (140-400) K/mcL Neutrophils # 8.0 (1.6-8.9) K/mcL BMP 09/05/17 01:38 Sodium 140 Potassium 3.9 Chloride 105 Carbon Dioxide 30 H BUN 12 Creatinine 0.77 Glucose 102 Calcium 9.3 Consult Discharge Plan - Plan Referrals: Yvrose Lewis MD [Primary Care Provider] -
[2017-09-05] MEDS: Acetaminophen 325 MG TABLET PO PRN ×2 (16:15→22:33)
[2017-09-06] MEDS: *HR* HYDROcodone/Acet 5/325 mg TABLET PO PRN ×2 (02:17→08:46)
--- NOTE | 2017-09-06 06:22 | Orthopedics Progress Note ---
Date of Encounter: 09/06/17 Time of Encounter: 06:22 Subjective Interval history: Patient seen this morning resting comfortably Right knee Swelling slightly improved No erythema Well-healed incision Patient appears stable for discharge will follow-up in the office in 48 hours Objective Vital signs: Vital Signs Temp Pulse Resp BP Pulse Ox 09/06/17 00:02 98.0 F 66 18 117/75 93 09/05/17 20:46 98.4 F 65 17 126/64 97 09/05/17 15:15 98.2 F 75 20 105/58 93 09/05/17 11:13 98.1 F 70 20 127/78 92 09/05/17 08:28 92 09/05/17 08:06 98.3 F 76 18 122/67 92 Intake and Output 09/05/17 09/05/17 09/06/17 15:59 23:59 07:59 Intake Total 360 / 360 450 / 450 Output Total 2300 / 2300 1000 / 1000 Balance -1940 / -1940 -550 / -550 Intake: Oral 360 / 360 450 / 450 Output: Urine 2300 / 2300 1000 / 1000 Other: Meal Lunch Dinner Percent of Meal Consumed 100% 100% # Voids 1 - Labs CBC & BMP: 09/05/17 01:38 09/05/17 01:38 Labs: Abnormal lab results WBC 11.8 K/mcL (4.3-11.1) H 09/05/17 01:38 Carbon Dioxide 30 mEq/L (23-29) H 09/05/17 01:38 Consult Discharge Plan - Plan Referrals: Yvrose Lewis MD [Primary Care Provider] -
[2017-09-06] MEDS: Multivit/Ca/Min/Fe/FA 1 TAB TABLET PO SCH (08:47)
[2017-09-06] MEDS: Aspirin 81 MG TAB.CHEW PO SCH (08:47)
[2017-09-06] MEDS: Furosemide 40 MG/4 ML VIAL IVP SCH (08:47)
--- NOTE | 2017-09-06 11:11 | Discharge Summary ---
- NOTES TO OUTPATIENT PROVIDER Notes to Outpatient Provider: Patient hospitalized with increased swelling in right knee joint with suspected septic arthritis. Synovial fluid was tapped and sent for analysis. Does not appear to be infected. From an orthopedic standpoint patient has been cleared for discharge. Patient does have chronic pedal edema and this could be also be playing a role in his continued swelling in his right knee. He has Lasix dose has been increased after he responded to IV Lasix here. We will be discharged home today on increased dose of Lasix and will follow up with orthopedics for further management as outpatient regarding his right knee swelling. Orders not resulted at time of discharge: Pending orders 09/04/17 07:53 Cell Count w Diff,Synovial Fl [BF] Stat Date of Encounter: 09/06/17 Time of Encounter: 11:05 - Discharge Diagnosis (1) Arthritis of knee, right Priority: Primary Status: Chronic (2) Septic joint Priority: Secondary Status: Ruled-out Qualifiers: Septic arthritis location: knee Septic arthritis organism: due to unspecified organism Laterality: right Qualified Code(s): M00.9 - Pyogenic arthritis, unspecified (3) Venous insufficiency of both lower extremities Priority: Secondary Status: Acute (4) HTN (hypertension) Priority: Secondary Status: Chronic Qualifiers: Hypertension type: essential hypertension Qualified Code(s): I10 - Essential (primary) hypertension Hospital course: Mr. Turk is a 62 year old male Patient with history of arthritis, right knee replacement, A. fib, was hospitalized with increased swelling in right knee joint with suspected septic arthritis. Synovial fluid was tapped and sent for analysis. This does not appear to be infected. From an orthopedic standpoint patient has been cleared for discharge. Patient does have chronic pedal edema and this could be also be playing a role in his continued swelling in his right knee. He has Lasix dose has been increased after he responded to IV Lasix here. We will be discharged home today on increased dose of Lasix and will follow up with orthopedics for further management as outpatient regarding his right knee swelling. Discharge discussed with: patient, nurse - Time Spent with Patient Total time spent providing and/or coordinating discharge services: Less than 30 minutes (25 min) - Discharge Medications Prescriptions: HYDROcodone/Acet 5/325 mg [[place] 5-325 mg] 1 tab PO Q6HR PRN 5 Days #20 tablet PRN Reason: Moderate Pain Furosemide [Lasix] 40 mg PO BID #60 tablet Home Medications: Aspirin 81 mg PO DAILY 12/28/16 [History] Mv-Mn/FA/Vit K/Lycop/Lut/Coq10 [Daily Multivitamin Capsule] 1 tab PO DAILY 12/28 [History] Furosemide [Lasix] 40 mg PO BID #60 tablet 09/06/17 [Rx] HYDROcodone/Acet 5/325 mg [[place] 5-325 mg] 1 tab PO Q6HR PRN 5 Days #20 tablet 09/06/17 [Rx] Allergies/Adverse Reactions: 3 Allergy/AdvReac Type Severity Reaction Status Date / Time No Known Allergies Allergy Verified 06/15/17 11:30 Date of admission: 09/04/17 03:30 Primary care physician: Yvrose Lewis MD Consults: 09/05/17 07:56 Consult to Physical Therapy [CONS] Routine Comment: Evaluate, develop and implement POC Reason for Consult: right knee pain swelling s/p tkr Does patient have active BEDREST order?: No Is patient medically & hemodynamically stable?: Yes Patient assessed for mobility or mobilized this visit?: Yes Discharging clinician: Mirian Matthews Anticipated date of discharge: 09/06/17 - Constitutional Vitals: Temp Pulse Resp BP Pulse Ox 98.1 F 74 16 128/70 96 09/06/17 07:04 09/06/17 07:04 09/06/17 07:04 09/06/17 07:04 09/06/17 08:00 General appearance: Present: A&O X 3, no acute distress, answers questions appropriately - Respiratory Respiratory exam: Present: CTAB. Absent: accessory muscle use, rales, rhonchi, wheezes - Cardiovascular Cardiovascular exam: Present: RRR, +S1, +S2. Absent: diastolic murmur, gallop, rubs, systolic murmur - Extremities Exam Extremities exam: Present: pedal edema (Bilateral pedal edema greater on the left), warm, radial pulses palpable and symmetrical. Absent: calf tenderness, cyanotic Additional comments: Right knee swelling. Nontender to palpation. No erythema - Neurological Exam Neurological exam: Present: CN II-XII intact, oriented X3, no focal deficits. Absent: facial droop, speech deficit - Patient Status Disposition: Home, Self-Care Functional capacity at discharge: independent ambulation Overall status at discharge: patient is back to baseline - Discharge Instructions Instructions: Peripheral Vascular Disorders (DC), Chronic Hypertension (DC) Follow Up With: Madi Medley MD [Partnered Physician] - (within 1 week) Yvrose Lewis MD [Primary Care Provider] - 09/10/17 2:15 pm (In one to 2 weeks) - Diet and Activity Activity: increase activity as tolerated Diet: advance to your usual diet
[2017-09-06 16:29] VITALS: BP 114/73
== END 2017-09-06 17:10 | disposition home or self-care (01) ==
LOC: 3NENU → SUATTDRO 03:30
PROVIDERS: ADMIT Internal Medicine; ATTEND Internal Medicine